=== PATIENT | female | born 1950 | race Caucasian/White ===

== ENCOUNTER → 2016-09-30 | Outpatient (CLI) | payer MEDICARE ==
--- NOTE | ~2016-09-30 | MY11 ---
[facility] A Service of [facility] RADIOLOGY TEXT RESULTS PATIENT: SUSANA BRAN LOCATION: [facility] : [birth year] UNIT #: [id number] AGE: [address]: DAVID ROSADO MD SEX: F ORDER DR: [id number] [address] [address] [id number] O MR#: [id number] Acc #: [id number] NAME: SUSANA BRAN : 1950 SEX: F STUDY DATE/TIME: 09/30/2016 11:47 UNIT: [facility] ROOM: STUDY DESCRIPTION: MY Mammogram Screening Dig Noe Attending Physician: David Rosado M.D. Referring Physician: David Rosado M.D. Ordering Physician: David Rosado M.D. Primary Care Physician: David Rosado M.D. MEDICAL IMAGING REPORT This report is preliminary unless electronic signature is present. EXAM Digital screening mammogram 09/30/2016 HISTORY 66-year-old woman, no risk elevation. Annual screen. COMPARISON STUDIES Comparison mammograms date to 01/10/2006 with most recent 07/11/2014 FINDINGS Digital imaging of each breast was completed utilizing screening protocol. Review includes FDA-approved CAD device. Small nodular parenchymal pattern is again noted in each breast slightly dominant and stable on the right. Coarse calcification right breast is stable. I see no interval occurring breast mass. There are no suspicious microcalcifications and no architectural deformity. IMPRESSION Stable benign mammogram. Annual screening recommended. BIRADS II Patients over the age of 40 are entered into a reminder system with target due date for the next mammogram. A result letter will also be sent to the patient. BIRADS: 2 - Benign finding Dictated by... Delta Oneal M.D. THIS IS AN ELECTRONICALLY VERIFIED REPORT Delta Oneal M.D. at 10/01/2016 8:11 AM ANDREW/chi [facility] A Service of [facility] RADIOLOGY TEXT RESULTS PATIENT: SUSANA BRAN LOCATION: [facility] : [birth year] UNIT #: [id number] AGE: [address]: DAVID ROSADO MD SEX: F ORDER DR: TD: 09/30/2016 18:00 JOB #: [id number] MEDICAL IMAGING REPORT Page 1 of 1
== END | disposition home or self-care (01) ==
LOC: SMAM 11:07
DX: Z12.31 Encounter for screening mammogram for malignant neoplasm of breast (principal)
CPT/HCPCS: G0202